=== PATIENT | female | born 1975 | race Caucasian/White ===

== ENCOUNTER → 2016-08-30 | Outpatient (CLI) | payer BC, OTHER ==
[~2016-08-30] MED LIST: /RANI15TA GT; /RANI15TA PO; CITA40TA PO; IBUP80TA PO; PERCOCET PO; PRENTAB74 PO; VITACAP8 PO; ZOFR4SOL PO
--- NOTE | 2016-09-02 10:45 | SLEEPCENT ---
DATE OF PROCEDURE: 08/30/2016 ORDERED BY: LICHA Talavera Nocturnal polysomnography was performed for evaluation of sleep apnea syndrome symptoms and sleep physiology in this patient with a history of excessive somnolence and nonrestorative sleep. 7 hours and 55 minutes of data were reviewed. There were 384 minutes of sleep identified. Sleep latency was prolonged at 30 minutes. Rapid eye movement (REM) was normal at 84 minutes. Sleep architecture was fair. There were 4 REM periods appreciated. Overall sleep efficiency was 81.9%. The patient's EKG showed a sinus rhythm with an average heart rate of 62 beats per minute. EEG showed some eye movement activity possibly related to medications (fluoxetine). Otherwise, normal waveforms for awake and sleep. No focal events were seen. There were only 19 respiratory events identified of 10 seconds in duration or greater for an apnea hypopnea index of 3. Snoring was noted over the course of the study in all positions. Respiratory related arousals, when arousal from snoring were included, occurred 2.3 times per hour. There was significant limb activity over the course of the study, and limb movement arousal index was 8.1. IMPRESSION: 1. Mild periodic limb movement disorder (G47..61). Limb movement arousal index 8.1. 2. Snoring with snore-related arousals 2.3 times per hour. RECOMMENDATION: Interventions to reduce the frequency of limb activity may improve sleep architecture, as may interventions to optimize upper airway tone given the snoring and snore-related arousals. Should the patient's persist, repeat testing may be helpful to identify mild obstructive apneic disease.
== END ==
LOC: M SLEEP 19:16
PROVIDERS: ATTEND Nurse Practitioner Adult Health
DX: G47.61 Periodic limb movement disorder (principal)

== ENCOUNTER → 2017-01-03 | Outpatient (REF) | payer OTHER ==
[2017-01-03 17:38] LABS: DIFF SLIDE NUMBER 224; MEAN CORPUSCULAR HEMOGLOBIN 25.3 pg (27.0-33.0); MEAN CORPUSCULAR HGB CONC 31.5 g/dl (32.0-36.5); MEAN CORPUSCULAR VOLUME 80.2 fl (80.0-96.0); PLATELET COUNT, AUTOMATED 269 k/mm3 (150-450); RED CELL DISTRIBUTION WIDTH 14.7 % (11.5-14.5)
[2017-01-03 18:08] LABS: ANISOCYTOSIS 1+; BASOPHILS 1 % (0-4); EOSINOPHILS 4 % (0-5); HYPOCHROMASIA 1+
[2017-01-03 18:55] LABS: ALBUMIN 3.4 GM/DL (3.2-5.2); ALBUMIN/GLOBULIN RATIO 0.79 (1.00-1.93); ALKALINE PHOSPHATASE 73 U/L (45-117); ALT/SGPT 24 U/L (12-78); AMYLASE 49 U/L (25-115); ANION GAP 9 MEQ/L (8-16); AST/SGOT 23 U/L (15-37); BILIRUBIN,TOTAL 0.2 MG/DL (0.2-1.0); BLOOD UREA NITROGEN 13 MG/DL (7-18); CALCIUM LEVEL 8.4 MG/DL (8.5-10.1); CARBON DIOXIDE LEVEL 24 MEQ/L (21-32); CHLORIDE LEVEL 107 MEQ/L (98-107); GLOMERULAR FILTRATION RATE > 60.0 (>58); GLUCOSE, FASTING 83 MG/DL (70-105); POTASSIUM SERUM 4.4 MEQ/L (3.5-5.1); SODIUM LEVEL 140 MEQ/L (136-145); TOTAL PROTEIN 7.7 GM/DL (6.4-8.2)
== END ==
LOC: M SFHCCLAY 10:54
PROVIDERS: ATTEND Family Medicine
DX: R10.84 Generalized abdominal pain (principal); R19.7 Diarrhea, unspecified

== ENCOUNTER → 2018-09-07 | Outpatient (REF) | payer OTHER | LOC: M SFHCCLAY 10:34 | PROVIDERS: ATTEND Nurse Practitioner Family | DX: J02.9 Acute pharyngitis, unspecified (principal) ==

== ENCOUNTER → 2019-03-12 | Outpatient (REF) | payer OTHER ==
[~2019-03-12] MED LIST changes: -/RANI15TA GT; -/RANI15TA PO; +OXYC1TAB23 PO; -PERCOCET PO; +RANI1TAB17 GT; +RANI1TAB17 PO
[2019-03-12 11:29] LABS: BASO # 0.1 10^3/uL (0.0-0.2); BASO % 1.1 % (0.0-1.0); EOS # 0.2 10^3/uL (0.0-0.50); EOS % 2.7 % (0.0-3.0); HEMATOCRIT 29.7 % (36.0-47.0); HEMOGLOBIN 8.2 g/dl (12.0-15.5); LYMPH # 2.1 10^3/uL (1.5-4.5); LYMPH % 37.3 % (24.0-44.0); MEAN CORPUSCULAR HEMOGLOBIN 19.2 pg (27.0-33.0); MEAN CORPUSCULAR HGB CONC 27.6 g/dl (32.0-36.5); MEAN CORPUSCULAR VOLUME 69.4 fl (80.0-96.0); MONO # 0.5 10^3/uL (0.0-0.8); MONO % 9.3 % (0.0-5.0); NEUTROPHILS # 2.7 10^3/uL (1.8-7.7); NEUTROPHILS % 49.4 % (36.0-66.0); PLATELET COUNT, AUTOMATED 398 10^3/uL (150-450); RED BLOOD COUNT 4.28 10^6/uL (4.00-5.40); WHITE BLOOD COUNT 5.5 10^3/uL (4.0-10.0)
== END ==
LOC: M SFHCCLAY 08:55
PROVIDERS: ATTEND Nurse Practitioner Family
DX: D64.9 Anemia, unspecified (principal)

== ENCOUNTER → 2019-03-13 | Outpatient (REF) | payer OTHER ==
[2019-03-14 11:59] LABS: PERCENT SATURATION 2.4 % (13.2-45.0)
[2019-03-14 12:08] LABS: FOLATE 15.2 NG/ML (>5.4)
== END ==
LOC: M SFHCCLAY 14:50
PROVIDERS: ATTEND Nurse Practitioner Family
DX: D64.9 Anemia, unspecified (principal)

== ENCOUNTER → 2019-03-25 | Outpatient (CLI) | payer BC, OTHER ==
--- NOTE | 2019-03-26 07:26 | REP ---
REASON: Hand pain. PRIORS: None. FINDINGS: The joint spaces are symmetric and relatively well maintained. There is no evidence of acute fracture or destructive osseous lesion. If a soft tissue abnormality is of clinical concern, then MRI is recommended. IMPRESSION: Negative. Electronically Signed by Bradley Gibson DO 03/26/2019 12:00 P
== END ==
LOC: M CLY 15:08
PROVIDERS: ATTEND Family Medicine
DX: M79.642 Pain in left hand (principal)

== ENCOUNTER → 2019-09-17 | Outpatient (REF) | payer OTHER, MEDICAID ==
[2019-09-17 18:05] LABS: FOLLICLE STIMULATING HORMONE 5.4 mIU/mL; FREE T4 1.08 NG/DL (0.76-1.46); LUTEINIZING HORMONE 3.8 mIU/mL; THYROID STIMULATING HORMONE 2.02 uIU/ML (0.358-3.740)
== END ==
LOC: M LAB REF 17:04
PROVIDERS: ATTEND Obstetrics & Gynecology
DX: N92.1 Excessive and frequent menstruation with irregular cycle (principal)

== ENCOUNTER → 2020-06-18 | Outpatient (REF) | payer MEDICAID, OTHER ==
[2020-06-19 12:31] LABS: BASO # 0.1 10^3/uL (0.0-0.2); BASO % 0.5 % (0.0-1.0); EOS # 0.1 10^3/uL (0.0-0.5); EOS % 1.5 % (0.0-3.0); HEMATOCRIT 39.8 % (36.0-47.0); HEMOGLOBIN 12.7 g/dl (12.0-15.5); LYMPH # 3.2 10^3/uL (1.5-5.0); LYMPH % 34.3 % (24.0-44.0); MEAN CORPUSCULAR HGB CONC 31.9 g/dl (32.0-36.5); MEAN CORPUSCULAR VOLUME 94.1 fl (80.0-96.0); MONO # 0.6 10^3/uL (0.0-0.8); MONO % 6.2 % (0.0-5.0); NEUTROPHILS # 5.3 10^3/uL (1.5-8.5); NEUTROPHILS % 57.3 % (36.0-66.0); PLATELET COUNT, AUTOMATED 262 10^3/uL (150-450); RED BLOOD COUNT 4.23 10^6/uL (4.00-5.40); WHITE BLOOD COUNT 9.2 10^3/uL (4.0-10.0)
[2020-06-19 13:03] LABS: ALBUMIN 2.8 GM/DL (3.2-5.2); ALT/SGPT 20 U/L (12-78); BILIRUBIN,TOTAL 0.4 MG/DL (0.2-1.0); BLOOD UREA NITROGEN 6 MG/DL (7-18); CALCIUM LEVEL 8.3 MG/DL (8.5-10.1); CARBON DIOXIDE LEVEL 27 MEQ/L (21-32); CHLORIDE LEVEL 105 MEQ/L (98-107); CHOLESTEROL LEVEL 162 MG/DL (<200); CHOLESTEROL RISK RATIO 2.076 (<5); CREATININE FOR GFR 0.69 MG/DL (0.55-1.30); FERRITIN 11 NG/ML (8-252); GLOMERULAR FILTRATION RATE > 60.0 (>58); GLUCOSE, FASTING 78 MG/DL (70-100); HDL CHOLESTEROL 78 MG/DL (>40); IRON (FE) 54 UG/DL (50-170); LDL CHOLESTEROL 69 MG/DL (<100); MAGNESIUM LEVEL 1.6 MG/DL (1.8-2.4); NON-HDL-C 84 MG/DL; POTASSIUM SERUM 5.5 MEQ/L (3.5-5.1); SODIUM LEVEL 137 MEQ/L (136-145); TOTAL PROTEIN 6.6 GM/DL (6.4-8.2); TRIGLYCERIDES LEVEL 76 MG/DL (<150)
[2020-06-19 13:04] LABS: VITAMIN B12 LEVEL 295 PG/ML (247-911)
[2020-06-19 13:05] LABS: FOLATE 6.9 NG/ML (>5.4)
== END ==
LOC: M SFHCCLAY 14:52
PROVIDERS: ATTEND Family Medicine
DX: Z98.84 Bariatric surgery status (principal)

== ENCOUNTER → 2023-11-16 | Outpatient (REF) | payer OTHER ==
[~2023-11-16] MED LIST changes: +ACET-897 PO; +BIOT1TAB PO; +CHLO25TA PO; +CHOL1CAP10 PO; +CHOL25TA2 PO; +FLUO40CA PO; +FOLI1TAB11 PO; +IRON1TAB2 PO; +LACT10SO3 PO; +MAGN400C PO; +MULT1CHW29 PO; +OCUVCAP PO; +POTA-151 PO; +PRED10TA2 PO; +PROT1TAB2 PO; +VITA100T59 PO; +iron PO
[2023-11-16 17:19] LABS: BASO # 0.1 10^3/uL (0.0-0.2); EOS # 0.1 10^3/uL (0.0-0.5); EOS % 0.8 % (0.0-3.0); HEMATOCRIT 35.2 % (36.0-47.0); HEMOGLOBIN 12.3 g/dl (12.0-15.5); LYMPH # 1.4 10^3/uL (1.5-5.0); LYMPH % 17.3 % (24.0-44.0); MEAN CORPUSCULAR HEMOGLOBIN 36.3 pg (27.0-33.0); MEAN CORPUSCULAR HGB CONC 34.9 g/dl (32.0-36.5); MEAN CORPUSCULAR VOLUME 103.8 fl (80.0-96.0); MONO # 0.8 10^3/uL (0.0-0.8); MONO % 9.9 % (2.0-8.0); NEUTROPHILS # 5.7 10^3/uL (1.5-8.5); NEUTROPHILS % 70.7 % (36.0-66.0); PLATELET COUNT, AUTOMATED 167 10^3/uL (150-450); RED BLOOD COUNT 3.39 10^6/uL (4.00-5.40)
[2023-11-16 18:19] LABS: HEPATITIS B CORE ANTIBODY IGM NEGATIVE (NEGATIVE); HEPATITIS C VIRUS ABY INDEX 0.11 INDEX (<0.8)
[2023-11-16 18:40] LABS: ALKALINE PHOSPHATASE 193 U/L (46-116); ALT/SGPT 52 U/L (7.0-40); AST/SGOT 198 U/L (<34); BILIRUBIN,TOTAL 6.4 MG/DL (0.3-1.2); BLOOD UREA NITROGEN 6 MG/DL (9-23); CALCIUM LEVEL 7.8 MG/DL (8.5-10.1); CARBON DIOXIDE LEVEL 31 MMOL/L (20-31); CHLORIDE LEVEL 96 MMOL/L (98-107); GLOMERULAR FILTRATION RATE > 60.0 (>58); GLUCOSE, FASTING 111 MG/DL (60-100); MAGNESIUM LEVEL 1.5 MG/DL (1.8-2.4); POTASSIUM SERUM 2.7 MMOL/L (3.5-5.1); SODIUM LEVEL 133 MMOL/L (136-145); TOTAL PROTEIN 7.5 G/DL (5.7-8.2)
== END ==
LOC: M SFHCCLAY 10:16
PROVIDERS: ATTEND Family Medicine
DX: K76.0 Fatty (change of) liver, not elsewhere classified (principal); R79.89 Other specified abnormal findings of blood chemistry

== ENCOUNTER 2023-11-17 10:09 | Inpatient (IN) | payer MEDICAID, OTHER ==
[~2023-11-17] VITALS: Ht 160 cm; Wt 103.1 kg
[~2023-11-17 10:09] MED LIST changes: -ACET-897 PO; -BIOT1TAB PO; -CHLO25TA PO; -CHOL1CAP10 PO; -CHOL25TA2 PO; -FLUO40CA PO; -FOLI1TAB11 PO; -IRON1TAB2 PO; -LACT10SO3 PO; +MAG SULF 1GM/100ML (MAG RUN) 1 GM in IV 1 EA IV SCH; -MAGN400C PO; -MULT1CHW29 PO; -OCUVCAP PO; -POTA-151 PO; -PRED10TA2 PO; -PROT1TAB2 PO; -VITA100T59 PO; -iron PO
[2023-11-17] MEDS ORDERED: BIOT1TAB PO (10:19)
[2023-11-17] MEDS ORDERED: OCUVCAP PO (10:19)
[2023-11-17] MEDS ORDERED: FLUO40CA PO (10:19)
[2023-11-17] MEDS ORDERED: MAGN400C PO (10:19)
[2023-11-17] MEDS ORDERED: CHLO25TA PO (10:19)
[2023-11-17] MEDS ORDERED: IRON1TAB2 PO (10:19)
[2023-11-17] MEDS ORDERED: CHOL1CAP10 PO (10:19)
[2023-11-17] MEDS ORDERED: POTA-151 PO (10:19)
[2023-11-17 12:01] LABS: BASO # 0.1 10^3/uL (0.0-0.2); BASO % 0.9 % (0.0-1.0); EOS # 0.1 10^3/uL (0.0-0.5); EOS % 0.6 % (0.0-3.0); HEMATOCRIT 35.4 % (36.0-47.0); HEMOGLOBIN 12.5 g/dl (12.0-15.5); LYMPH # 1.4 10^3/uL (1.5-5.0); LYMPH % 17.3 % (24.0-44.0); MEAN CORPUSCULAR HGB CONC 35.3 g/dl (32.0-36.5); MEAN CORPUSCULAR VOLUME 104.7 fl (80.0-96.0); MONO # 0.8 10^3/uL (0.0-0.8); MONO % 9.9 % (2.0-8.0); NEUTROPHILS # 5.6 10^3/uL (1.5-8.5); NEUTROPHILS % 70.9 % (36.0-66.0); PLATELET COUNT, AUTOMATED 181 10^3/uL (150-450); RED BLOOD COUNT 3.38 10^6/uL (4.00-5.40); WHITE BLOOD COUNT 7.9 10^3/uL (4.0-10.0)
[2023-11-17 12:38] LABS: LIPASE 32 U/L (12-53)
[2023-11-17 12:40] LABS: ALBUMIN 1.9 G/DL (3.2-5.2); ALKALINE PHOSPHATASE 190 U/L (46-116); ALT/SGPT 55 U/L (7.0-40); AST/SGOT 217 U/L (<34); BILIRUBIN,DIRECT 5.4 MG/DL (<0.4); BILIRUBIN,TOTAL 7.5 MG/DL (0.3-1.2); TOTAL PROTEIN 7.7 G/DL (5.7-8.2)
[2023-11-17] MEDS: PANTOPRAZOLE 40MG VIAL IV ONE (12:56)
[2023-11-17] MEDS: ONDANSETRON 4MG 2ML VIAL IV ONE (12:56)
[2023-11-17] MEDS: NS 1,000 ML IV SCH (12:56)
[2023-11-17] MEDS: POTASSIUM CHLORIDE 10MEQ SR TABLET PO ONE (12:57)
[2023-11-17 14:38] LABS: INR 1.9; PROTHROMBIN TIME 21.1 SECONDS (12.5-14.5)
[2023-11-17 15:17] LABS: HEPATITIS B CORE ANTIBODY IGM NEGATIVE (NEGATIVE); HEPATITIS C VIRUS ABY INDEX 0.19 INDEX (<0.8)
[2023-11-17] MEDS ORDERED: VITA100T59 PO (15:20)
[2023-11-17] MEDS ORDERED: iron PO (15:20)
[2023-11-17] MEDS ORDERED: CHOL25TA2 PO (15:20)
[2023-11-17] MEDS ORDERED: ACET-897 PO (15:20)
[2023-11-17] MEDS ORDERED: MULT1CHW29 PO (15:20)
[2023-11-17] MEDS ORDERED: HOME MED LIST COMPLETE! XX SCH (15:25)
[2023-11-17 21:21] LABS: AMYLASE 42 U/L (30-118); BLOOD UREA NITROGEN 7 MG/DL (9-23); CALCIUM LEVEL 7.4 MG/DL (8.5-10.1); CARBON DIOXIDE LEVEL 30 MMOL/L (20-31); CHLORIDE LEVEL 96 MMOL/L (98-107); CREATININE FOR GFR 0.48 MG/DL (0.55-1.30); GLOMERULAR FILTRATION RATE > 60.0 (>58); GLUCOSE, FASTING 105 MG/DL (60-100); MAGNESIUM LEVEL 1.6 MG/DL (1.8-2.4); SODIUM LEVEL 134 MMOL/L (136-145)
[2023-11-17] MEDS ORDERED: IBUPROFEN 400MG TAB PO PRN (23:00)
[2023-11-17] MEDS ORDERED: ONDANSETRON 4MG 2ML VIAL IV PRN (23:00)
[2023-11-17] MEDS ORDERED: KETOROLAC 30 MG/ML 1ML VIAL IV PRN (23:00)
[2023-11-18] VITALS (16 sets, daily range): BP systolic 94–110; BP diastolic 59–67; TEMP 96.8–98; O2SAT 92–97
[2023-11-18 00:01] LABS: ETHYL ALCOHOL (ETHANOL) < 0.003 % (0.000-0.010)
[2023-11-18 00:05] LABS: BLOOD UREA NITROGEN 8 MG/DL (9-23); CALCIUM LEVEL 6.8 MG/DL (8.5-10.1); CARBON DIOXIDE LEVEL 27 MMOL/L (20-31); CHLORIDE LEVEL 104 MMOL/L (98-107); CREATININE FOR GFR 0.51 MG/DL (0.55-1.30); GLOMERULAR FILTRATION RATE > 60.0 (>58); GLUCOSE, FASTING 75 MG/DL (60-100); MAGNESIUM LEVEL 1.7 MG/DL (1.8-2.4); PHOSPHORUS LEVEL 1.9 MG/DL (2.5-4.9); POTASSIUM SERUM 2.8 MMOL/L (3.5-5.1); SODIUM LEVEL 135 MMOL/L (136-145)
[2023-11-18] MEDS: CIPROFLOXACIN 400 MG in IV 1 EA IV SCH (00:09)
[2023-11-18 00:15] LABS: HEMOGLOBIN A1c 4.3 % (4.0-6.0)
[2023-11-18] MEDS ORDERED: KCL 10MEQ/100ML SWI (KRUN) 10 MEQ in IV 1 EA IV SCH (00:30)
[2023-11-18] MEDS ORDERED: LORazepam 2 MG TAB PO PRN (00:45)
[2023-11-18] MEDS: MAG SULF 1GM/100ML (MAG RUN) 1 GM in IV 1 EA IV SCH ×2 (01:14→11:48)
[2023-11-18] MEDS: KCL 20MEQ IN D5/NS 1000ML 1,000 ML IV SCH (03:18)
[2023-11-18] MEDS: POTASSIUM CHLORIDE 10MEQ SR TABLET PO ONE (03:23)
[2023-11-18] MEDS: THIAMINE 100 MG TAB PO SCH (03:23)
[2023-11-18] MEDS: metroNIDAZOLE 500 MG in IV 1 EA IV SCH (03:23)
[2023-11-18] MEDS: HEPARIN SOD (PORCINE) 5000UNITS/ML 1ML VIAL/SYRINGE SC SCH (05:08)
[2023-11-18] MEDS: KCL 10MEQ/100ML SWI (KRUN) 10 MEQ in IV 1 EA IV SCH (05:08)
[2023-11-18 06:26] LABS: TRIGLYCERIDES LEVEL 112 MG/DL (<150)
[2023-11-18 09:09] LABS: BASO # 0.1 10^3/uL (0.0-0.2); BASO % 1.2 % (0.0-1.0); EOS # 0.2 10^3/uL (0.0-0.5); HEMATOCRIT 32.4 % (36.0-47.0); HEMOGLOBIN 11.3 g/dl (12.0-15.5); LYMPH # 1.5 10^3/uL (1.5-5.0); LYMPH % 24.4 % (24.0-44.0); MEAN CORPUSCULAR HEMOGLOBIN 37.4 pg (27.0-33.0); MEAN CORPUSCULAR HGB CONC 34.9 g/dl (32.0-36.5); MEAN CORPUSCULAR VOLUME 107.3 fl (80.0-96.0); MONO # 0.5 10^3/uL (0.0-0.8); MONO % 8.8 % (2.0-8.0); NEUTROPHILS # 3.7 10^3/uL (1.5-8.5); NEUTROPHILS % 62.3 % (36.0-66.0); PLATELET COUNT, AUTOMATED 141 10^3/uL (150-450); RED BLOOD COUNT 3.02 10^6/uL (4.00-5.40); WHITE BLOOD COUNT 5.9 10^3/uL (4.0-10.0)
[2023-11-18 09:50] LABS: ALBUMIN 1.5 G/DL (3.2-5.2); ALKALINE PHOSPHATASE 156 U/L (46-116); ALT/SGPT 41 U/L (7.0-40); AST/SGOT 194 U/L (<34); BILIRUBIN,TOTAL 6.5 MG/DL (0.3-1.2); BLOOD UREA NITROGEN 10 MG/DL (9-23); CARBON DIOXIDE LEVEL 26 MMOL/L (20-31); CHLORIDE LEVEL 103 MMOL/L (98-107); CREATININE FOR GFR 0.52 MG/DL (0.55-1.30); GLOMERULAR FILTRATION RATE > 60.0 (>58); GLUCOSE, FASTING 94 MG/DL (60-100); POTASSIUM SERUM 2.7 MMOL/L (3.5-5.1); SODIUM LEVEL 134 MMOL/L (136-145); TOTAL PROTEIN 6.6 G/DL (5.7-8.2)
[2023-11-18] MEDS: KETOROLAC 30 MG/ML 1ML VIAL IV PRN (10:19)
[2023-11-18] MEDS: FLUoxetine 20MG CAP PO SCH (10:20)
[2023-11-18] MEDS: FOLIC ACID 1MG TAB PO SCH (10:20)
[2023-11-18] MEDS: POTASSIUM CHLORIDE 10MEQ SR TABLET PO SCH (10:20)
[2023-11-18] MEDS: MAGNESIUM OXIDE 400MG TAB (MAG-OX) PO SCH ×2 (10:20→16:06)
[2023-11-18] MEDS: MULTIVITAMINS/MINERALS THERAP 1 TAB PO SCH (10:21)
[2023-11-18] MEDS: FERROUS SULFATE 325MG TAB PO SCH (10:21)
[2023-11-18] MEDS ORDERED: MORPHINE 4 MG/ML 1ML VIAL IV PRN (10:30)
[2023-11-18] MEDS ORDERED: LR 1,000 ML IV SCH (10:30)
[2023-11-18] MEDS ORDERED: PERCOCET 5MG/325MG TAB PO PRN ×2 (10:30→14:15)
[2023-11-18] MEDS ORDERED: ISOVUE-370 76% 100ML VIAL As Ordered ONE (10:48)
[2023-11-18] MEDS: PANTOPRAZOLE 40MG VIAL IV SCH (11:12)
[2023-11-18] MEDS: ACETAMINOPHEN 500 MG TAB PO SCH (11:13)
[2023-11-18] MEDS: prednisoLONE (PRELONE) 15MG/5ML SYRUP UDC PO SCH (13:19)
[2023-11-18] MEDS: POTASSIUM PHOSPHATE INJ 30 MMOL in D5W 500 ML IV ONE (16:01)
[2023-11-18] MEDS ORDERED: oxyCODONE 5MG TAB PO PRN (16:15)
[2023-11-18] MEDS: ACETAMINOPHEN 500 MG TAB PO PRN (18:29)
[2023-11-18 22:51] LABS: ALBUMIN 1.5 G/DL (3.2-5.2); BLOOD UREA NITROGEN 8 MG/DL (9-23); CALCIUM LEVEL 6.7 MG/DL (8.5-10.1); CARBON DIOXIDE LEVEL 24 MMOL/L (20-31); CHLORIDE LEVEL 103 MMOL/L (98-107); CREATININE FOR GFR 0.49 MG/DL (0.55-1.30); GLOMERULAR FILTRATION RATE > 60.0 (>58); GLUCOSE, FASTING 169 MG/DL (60-100); MAGNESIUM LEVEL 2.3 MG/DL (1.8-2.4); PHOSPHORUS LEVEL 2.3 MG/DL (2.5-4.9); POTASSIUM SERUM 3.9 MMOL/L (3.5-5.1); SODIUM LEVEL 133 MMOL/L (136-145)
[2023-11-19 03:53] VITALS: BP 98/50; TEMP 97.3; O2SAT 95
[2023-11-19 05:57] LABS: BASO % 0.1 % (0.0-1.0); EOS % 0.3 % (0.0-3.0); HEMATOCRIT 31.7 % (36.0-47.0); HEMOGLOBIN 11.2 g/dl (12.0-15.5); LYMPH # 1.1 10^3/uL (1.5-5.0); LYMPH % 14.4 % (24.0-44.0); MEAN CORPUSCULAR HEMOGLOBIN 37.1 pg (27.0-33.0); MEAN CORPUSCULAR HGB CONC 35.3 g/dl (32.0-36.5); MONO # 0.6 10^3/uL (0.0-0.8); NEUTROPHILS # 5.7 10^3/uL (1.5-8.5); NEUTROPHILS % 76.8 % (36.0-66.0); PLATELET COUNT, AUTOMATED 144 10^3/uL (150-450); RED BLOOD COUNT 3.02 10^6/uL (4.00-5.40); WHITE BLOOD COUNT 7.4 10^3/uL (4.0-10.0)
[2023-11-19 06:07] LABS: INR 2.1; PROTHROMBIN TIME 22.9 SECONDS (12.5-14.5)
[2023-11-19 06:27] LABS: ALBUMIN 1.5 G/DL (3.2-5.2); ALKALINE PHOSPHATASE 142 U/L (46-116); ALT/SGPT 47 U/L (7.0-40); AST/SGOT 175 U/L (<34); BILIRUBIN,DIRECT 4.4 MG/DL (<0.4); BILIRUBIN,TOTAL 5.5 MG/DL (0.3-1.2); BLOOD UREA NITROGEN 6 MG/DL (9-23); CALCIUM LEVEL 6.7 MG/DL (8.5-10.1); CARBON DIOXIDE LEVEL 25 MMOL/L (20-31); CHLORIDE LEVEL 104 MMOL/L (98-107); CREATININE FOR GFR 0.46 MG/DL (0.55-1.30); GLOMERULAR FILTRATION RATE > 60.0 (>58); GLUCOSE, FASTING 148 MG/DL (60-100); MAGNESIUM LEVEL 2.3 MG/DL (1.8-2.4); PHOSPHORUS LEVEL 2.1 MG/DL (2.5-4.9); POTASSIUM SERUM 3.7 MMOL/L (3.5-5.1); SODIUM LEVEL 135 MMOL/L (136-145); TOTAL PROTEIN 6.5 G/DL (5.7-8.2)
[2023-11-19 07:48] VITALS: BP 126/64; TEMP 98; O2SAT 95
[2023-11-19 11:13] VITALS: BP 107/58; TEMP 96.8; O2SAT 95
[2023-11-19] MEDS: SODIUM PHOSPHATE INJ 20 MMOL in D5W 250 ML IV ONE (15:10)
[2023-11-19 20:06] VITALS: BP 107/55; TEMP 96.9; O2SAT 94
[2023-11-19] MEDS: LACTULOSE 20GM/30ML SYRUP UDC PO SCH (21:43)
[2023-11-19] MEDS: HEPARIN SOD (PORCINE) 5000UNITS/ML 1ML VIAL/SYRINGE SQ SCH (21:44)
[2023-11-20 04:06] VITALS: BP 111/58; TEMP 97.2; O2SAT 95
[2023-11-20 04:43] LABS: BASO % 0.3 % (0.0-1.0); EOS # 0.1 10^3/uL (0.0-0.5); HEMATOCRIT 34.3 % (36.0-47.0); LYMPH # 1.8 10^3/uL (1.5-5.0); LYMPH % 22.9 % (24.0-44.0); MEAN CORPUSCULAR HEMOGLOBIN 37.6 pg (27.0-33.0); MEAN CORPUSCULAR VOLUME 107.5 fl (80.0-96.0); MONO # 0.5 10^3/uL (0.0-0.8); MONO % 6.2 % (2.0-8.0); NEUTROPHILS # 5.5 10^3/uL (1.5-8.5); NEUTROPHILS % 69.3 % (36.0-66.0); PLATELET COUNT, AUTOMATED 164 10^3/uL (150-450); RED BLOOD COUNT 3.19 10^6/uL (4.00-5.40); WHITE BLOOD COUNT 7.9 10^3/uL (4.0-10.0)
[2023-11-20 04:57] LABS: INR 2.08; PROTHROMBIN TIME 22.6 SECONDS (12.5-14.5)
[2023-11-20 05:11] LABS: ALBUMIN 1.6 G/DL (3.2-5.2); ALKALINE PHOSPHATASE 176 U/L (46-116); ALT/SGPT 59 U/L (7.0-40); AST/SGOT 197 U/L (<34); BILIRUBIN,DIRECT 3.8 MG/DL (<0.4); BILIRUBIN,TOTAL 4.8 MG/DL (0.3-1.2); BLOOD UREA NITROGEN 7 MG/DL (9-23); CALCIUM LEVEL 6.5 MG/DL (8.5-10.1); CARBON DIOXIDE LEVEL 26 MMOL/L (20-31); CHLORIDE LEVEL 103 MMOL/L (98-107); GLOMERULAR FILTRATION RATE > 60.0 (>58); GLUCOSE, FASTING 92 MG/DL (60-100); PHOSPHORUS LEVEL 2.1 MG/DL (2.5-4.9); POTASSIUM SERUM 3.4 MMOL/L (3.5-5.1); SODIUM LEVEL 136 MMOL/L (136-145)
[2023-11-20] MEDS: POTASSIUM CHLORIDE 10MEQ SR TABLET PO ONE (06:11)
[2023-11-20 08:04] VITALS: BP 86/58; TEMP 97.1; O2SAT 96
[2023-11-20] MEDS: K-PHOS NEUTRAL 250MG TABLET (SOD.PHOSPHATE/POT.PHOSPHATE) PO SCH (08:56)
[2023-11-20 13:01] VITALS: BP 102/56
[2023-11-20] MEDS: oxyCODONE 5MG TAB PO PRN (14:08)
[2023-11-20 16:45] VITALS: BP 110/64; TEMP 97.3; O2SAT 93
[2023-11-20 17:21] VITALS: BP 112/57; TEMP 97.1; O2SAT 94
[2023-11-20 20:34] VITALS: BP 98/53; TEMP 97.5; O2SAT 94
[2023-11-21 05:10] LABS: BASO % 0.4 % (0.0-1.0); EOS # 0.2 10^3/uL (0.0-0.5); HEMATOCRIT 32.4 % (36.0-47.0); HEMOGLOBIN 11.2 g/dl (12.0-15.5); LYMPH # 2.4 10^3/uL (1.5-5.0); LYMPH % 30.9 % (24.0-44.0); MEAN CORPUSCULAR HEMOGLOBIN 36.8 pg (27.0-33.0); MEAN CORPUSCULAR HGB CONC 34.6 g/dl (32.0-36.5); MEAN CORPUSCULAR VOLUME 106.6 fl (80.0-96.0); MONO # 0.6 10^3/uL (0.0-0.8); MONO % 7.8 % (2.0-8.0); NEUTROPHILS # 4.5 10^3/uL (1.5-8.5); NEUTROPHILS % 58.4 % (36.0-66.0); PLATELET COUNT, AUTOMATED 122 10^3/uL (150-450); RED BLOOD COUNT 3.04 10^6/uL (4.00-5.40); WHITE BLOOD COUNT 7.7 10^3/uL (4.0-10.0)
[2023-11-21 05:36] LABS: ALBUMIN 1.4 G/DL (3.2-5.2); ALKALINE PHOSPHATASE 170 U/L (46-116); ALT/SGPT 56 U/L (7.0-40); AST/SGOT 191 U/L (<34); BILIRUBIN,DIRECT 3.1 MG/DL (<0.4); BILIRUBIN,TOTAL 3.9 MG/DL (0.3-1.2); BLOOD UREA NITROGEN 8 MG/DL (9-23); CARBON DIOXIDE LEVEL 27 MMOL/L (20-31); CHLORIDE LEVEL 105 MMOL/L (98-107); CREATININE FOR GFR 0.57 MG/DL (0.55-1.30); GLOMERULAR FILTRATION RATE > 60.0 (>58); GLUCOSE, FASTING 82 MG/DL (60-100); MAGNESIUM LEVEL 1.9 MG/DL (1.8-2.4); PHOSPHORUS LEVEL 2.1 MG/DL (2.5-4.9); POTASSIUM SERUM 3.4 MMOL/L (3.5-5.1); SODIUM LEVEL 137 MMOL/L (136-145); TOTAL PROTEIN 6.2 G/DL (5.7-8.2)
[2023-11-21 05:49] VITALS: BP 98/53; TEMP 97.2; O2SAT 95
[2023-11-21] MEDS: KCL 10MEQ/100ML SWI (KRUN) 10 MEQ in IV 1 EA IV SCH (08:38)
[2023-11-21 08:43] VITALS: BP 116/64
[2023-11-21 09:18] LABS: INR 2.07; PROTHROMBIN TIME 22.6 SECONDS (12.5-14.5)
[2023-11-21] MEDS: SODIUM PHOSPHATE INJ 20 MMOL in D5W 250 ML IV ONE (13:17)
[2023-11-21 14:00] VITALS: BP 121/60; TEMP 97.3; O2SAT 92
[2023-11-21 15:51] LABS: PHOSPHORUS LEVEL 3.2 MG/DL (2.5-4.9)
[2023-11-21] MEDS ORDERED: MAGN400C PO (16:39)
[2023-11-21] MEDS ORDERED: PROT1TAB2 PO (16:39)
[2023-11-21] MEDS ORDERED: POTA-151 PO (16:39)
[2023-11-21] MEDS ORDERED: FOLI1TAB11 PO (16:39)
[2023-11-21] MEDS ORDERED: PRED10TA2 PO (16:39)
[2023-11-21] MEDS ORDERED: LACT10SO3 PO (16:43)
== END 2023-11-21 17:37 | disposition home or self-care (01) | DRG 280 ==
LOC: M ED 10:09 → M ED INP 21:46 → ENRESERV 11-18 03:32 → M PCU 11-18 04:04 → M MS4PR 11-20 17:07
PROVIDERS: ADMIT Preventive Medicine Undersea and Hyperbaric Medicine; ATTEND Internal Medicine
DX: K70.11 Alcoholic hepatitis with ascites (principal); K76.6 Portal hypertension; E72.20 Disorder of urea cycle metabolism, unspecified; E83.42 Hypomagnesemia; E83.39 Other disorders of phosphorus metabolism; E83.51 Hypocalcemia; D50.9 Iron deficiency anemia, unspecified; F10.20 Alcohol dependence, uncomplicated; I10 Essential (primary) hypertension; F32.A Depression, unspecified; E66.9 Obesity, unspecified; E87.6 Hypokalemia; K29.20 Alcoholic gastritis without bleeding; K21.9 Gastro-esophageal reflux disease without esophagitis; K70.31 Alcoholic cirrhosis of liver with ascites; Z98.84 Bariatric surgery status; Z90.49 Acquired absence of other specified parts of digestive tract; Z79.899 Other long term (current) drug therapy

== ENCOUNTER → 2023-12-01 | Outpatient (REF) | payer OTHER ==
[~2023-12-01] MED LIST changes: +ACET-897 PO; +BIOT1TAB PO; +CHLO25TA PO; +CHOL1CAP10 PO; +CHOL25TA2 PO; +FLUO40CA PO; +FOLI1TAB11 PO; +IRON1TAB2 PO; +LACT10SO3 PO; -MAG SULF 1GM/100ML (MAG RUN) 1 GM in IV 1 EA IV SCH; +MAGN400C PO; +MULT1CHW29 PO; +OCUVCAP PO; +POTA-151 PO; +PRED10TA2 PO; +PROT1TAB2 PO; +VITA100T59 PO; +iron PO
[2023-12-01 17:18] LABS: HEMATOCRIT 35.3 % (36.0-47.0); HEMOGLOBIN 11.6 g/dl (12.0-15.5); MEAN CORPUSCULAR HEMOGLOBIN 37.1 pg (27.0-33.0); MEAN CORPUSCULAR HGB CONC 32.9 g/dl (32.0-36.5); MEAN CORPUSCULAR VOLUME 112.8 fl (80.0-96.0); PLATELET COUNT, AUTOMATED 124 10^3/uL (150-450); RED BLOOD COUNT 3.13 10^6/uL (4.00-5.40); WHITE BLOOD COUNT 7.1 10^3/uL (4.0-10.0)
[2023-12-01 17:38] LABS: ALBUMIN 1.7 G/DL (3.2-5.2); ALKALINE PHOSPHATASE 131 U/L (46-116); ALT/SGPT 80 U/L (7.0-40); AST/SGOT 176 U/L (<34); BILIRUBIN,TOTAL 2.9 MG/DL (0.3-1.2); BLOOD UREA NITROGEN 10 MG/DL (9-23); CALCIUM LEVEL 8.3 MG/DL (8.5-10.1); CARBON DIOXIDE LEVEL 26 MMOL/L (20-31); CHLORIDE LEVEL 104 MMOL/L (98-107); CREATININE FOR GFR 0.54 MG/DL (0.55-1.30); GLOMERULAR FILTRATION RATE > 60.0 (>58); GLUCOSE, FASTING 107 MG/DL (60-100); POTASSIUM SERUM 3.6 MMOL/L (3.5-5.1); SODIUM LEVEL 139 MMOL/L (136-145); TOTAL PROTEIN 6.6 G/DL (5.7-8.2)
[2023-12-01 17:39] LABS: FOLATE > 24.00 NG/ML (>5.4)
[2023-12-01 17:40] LABS: VITAMIN B12 LEVEL 736 PG/ML (211-911)
== END ==
LOC: M SFHCCLAY 13:45
PROVIDERS: ATTEND Family Medicine
DX: K76.0 Fatty (change of) liver, not elsewhere classified (principal); R79.89 Other specified abnormal findings of blood chemistry; K70.31 Alcoholic cirrhosis of liver with ascites; I10 Essential (primary) hypertension

== ENCOUNTER → 2023-12-07 | Outpatient (REF) | payer OTHER ==
[2023-12-07 14:47] LABS: BASO # 0.1 10^3/uL (0.0-0.2); BASO % 1.3 % (0.0-1.0); EOS # 0.3 10^3/uL (0.0-0.5); EOS % 4.7 % (0.0-3.0); HEMATOCRIT 35.5 % (36.0-47.0); HEMOGLOBIN 11.6 g/dl (12.0-15.5); LYMPH # 0.9 10^3/uL (1.5-5.0); LYMPH % 14.5 % (24.0-44.0); MEAN CORPUSCULAR HEMOGLOBIN 36.9 pg (27.0-33.0); MEAN CORPUSCULAR HGB CONC 32.7 g/dl (32.0-36.5); MEAN CORPUSCULAR VOLUME 113.1 fl (80.0-96.0); MONO # 0.6 10^3/uL (0.0-0.8); MONO % 9.1 % (2.0-8.0); NEUTROPHILS # 4.2 10^3/uL (1.5-8.5); NEUTROPHILS % 69.1 % (36.0-66.0); PLATELET COUNT, AUTOMATED 154 10^3/uL (150-450); RED BLOOD COUNT 3.14 10^6/uL (4.00-5.40)
[2023-12-07 15:18] LABS: ALKALINE PHOSPHATASE 120 U/L (46-116); ALT/SGPT 66 U/L (7.0-40); AST/SGOT 112 U/L (<34); BILIRUBIN,TOTAL 2.2 MG/DL (0.3-1.2); BLOOD UREA NITROGEN 10 MG/DL (9-23); CALCIUM LEVEL 8.8 MG/DL (8.5-10.1); CARBON DIOXIDE LEVEL 26 MMOL/L (20-31); CHLORIDE LEVEL 104 MMOL/L (98-107); CREATININE FOR GFR 0.53 MG/DL (0.55-1.30); GLOMERULAR FILTRATION RATE > 60.0 (>58); GLUCOSE, FASTING 88 MG/DL (60-100); POTASSIUM SERUM 3.8 MMOL/L (3.5-5.1); SODIUM LEVEL 136 MMOL/L (136-145); TOTAL PROTEIN 6.8 G/DL (5.7-8.2)
== END ==
LOC: M SFHCCLAY 09:20
PROVIDERS: ATTEND Family Medicine
DX: R79.89 Other specified abnormal findings of blood chemistry (principal); K76.0 Fatty (change of) liver, not elsewhere classified

== ENCOUNTER → 2024-11-25 | Outpatient (REF) | payer OTHER ==
[~2024-11-25] MED LIST changes: -LACT10SO3 PO; +LACT10SO94 PO
[2024-11-25 17:38] LABS: HEMOGLOBIN 14.6 g/dl (12.0-15.5); MEAN CORPUSCULAR HEMOGLOBIN 33.1 pg (27.0-33.0); MEAN CORPUSCULAR VOLUME 97.5 fl (80.0-96.0); PLATELET COUNT, AUTOMATED 157 10^3/uL (150-450); RED BLOOD COUNT 4.41 10^6/uL (4.00-5.40); WHITE BLOOD COUNT 6.5 10^3/uL (4.0-10.0)
[2024-11-25 17:43] LABS: ALBUMIN 3.3 G/DL (3.2-5.2); ALKALINE PHOSPHATASE 112 U/L (35-104); ALT/SGPT 45 U/L (7.0-40); AST/SGOT 110 U/L (<34); BILIRUBIN,TOTAL 0.4 MG/DL (0.3-1.2); BLOOD UREA NITROGEN 10 MG/DL (9-23); CALCIUM LEVEL 8.7 MG/DL (8.5-10.1); CARBON DIOXIDE LEVEL 25 MMOL/L (20-31); CHLORIDE LEVEL 105 MMOL/L (98-107); GLOMERULAR FILTRATION RATE > 90.0 (>58); GLUCOSE, FASTING 85 MG/DL (60-100); POTASSIUM SERUM 4.2 MMOL/L (3.5-5.1); SODIUM LEVEL 140 MMOL/L (136-145); TOTAL PROTEIN 7.4 G/DL (5.7-8.2)
== END ==
LOC: M SFHCCLAY 10:26
PROVIDERS: ATTEND Family Medicine
DX: R79.89 Other specified abnormal findings of blood chemistry (principal); I10 Essential (primary) hypertension